=== PATIENT | female | born 1995 | race Caucasian/White ===

== ENCOUNTER → 2022-11-16 | Outpatient (REF) | payer MEDICARE | LOC: M PLALAB 13:49 | PROVIDERS: ATTEND Nurse Practitioner Family | DX: Z12.4 Encounter for screening for malignant neoplasm of cervix (principal); Z85.41 Personal history of malignant neoplasm of cervix uteri | CPT/HCPCS: 87624; G0123 ==

== ENCOUNTER → 2023-05-16 | Outpatient (REF) | payer MEDICARE | LOC: M SFHCWAGY 13:02 | PROVIDERS: ATTEND Nurse Practitioner Family | DX: Z12.4 Encounter for screening for malignant neoplasm of cervix (principal); Z85.41 Personal history of malignant neoplasm of cervix uteri | CPT/HCPCS: 87624; G0123 ==

== ENCOUNTER → 2023-11-12 | Outpatient (REF) | payer MEDICARE | LOC: M SFHCWAGY 17:54 | PROVIDERS: ATTEND Nurse Practitioner Family | DX: Z12.4 Encounter for screening for malignant neoplasm of cervix (principal); Z85.41 Personal history of malignant neoplasm of cervix uteri | CPT/HCPCS: 87624; G0123 ==

== ENCOUNTER → 2024-05-15 | Outpatient (REF) | payer MEDICARE, OTHER ==
[2024-05-17 12:33] LABS: HPV APTIMA Not Detected (Not Detected)
== END ==
LOC: M SFHCWAGY 12:53
PROVIDERS: ATTEND Nurse Practitioner Family
DX: Z85.41 Personal history of malignant neoplasm of cervix uteri (principal); Z12.72 Encounter for screening for malignant neoplasm of vagina; N76.89 Other specified inflammation of vagina and vulva
CPT/HCPCS: 87070; 87077; 87624; G0123

== ENCOUNTER → 2024-12-30 | Outpatient (REF) | payer MEDICARE, OTHER ==
[2025-01-04 13:57] LABS: HPV VAGINAL Not Detected (NOT DETECT)
== END ==
LOC: M SFHCWAGY 09:44
PROVIDERS: ATTEND Nurse Practitioner Family
DX: Z12.4 Encounter for screening for malignant neoplasm of cervix (principal); Z12.72 Encounter for screening for malignant neoplasm of vagina; Z77.9 Other contact with and (suspected) exposures hazardous to health; Z85.41 Personal history of malignant neoplasm of cervix uteri
CPT/HCPCS: 87624; G0123

== ENCOUNTER → 2025-01-05 | Outpatient (CLI) | payer MEDICARE, OTHER | LOC: M WHC 13:07 | PROVIDERS: ATTEND Nurse Practitioner Family | DX: N64.4 Mastodynia (principal) ==

== ENCOUNTER → 2025-07-07 | Outpatient (REF) | payer OTHER ==
[2025-07-09 16:14] LABS: HPV APTIMA Not Detected (Not Detected)
== END ==
LOC: M SFHCWAGY 15:32
PROVIDERS: ATTEND Nurse Practitioner Family
DX: Z12.72 Encounter for screening for malignant neoplasm of vagina (principal); Z11.51 Encounter for screening for human papillomavirus (HPV); Z85.41 Personal history of malignant neoplasm of cervix uteri; R87.610 Atypical squamous cells of undetermined significance on cytologic smear of cervix (ASC-US)